=== PATIENT | male | born 1970 | race Caucasian/White ===

== ENCOUNTER 2017-01-06 11:03 | Emergency (ER) | payer OTHER ==
[~2017-01-06] VITALS: Ht 182.9 cm; Wt 115.0 kg
[~2017-01-06 11:03] MED LIST: BUPR150T12 PO; BUSP10TA PO; CYMB60CA PO; GABA600T PO; IBUP800T23 PO; LOVA20TA PO; LURA40 PO; METH750T PO; TRIA0.1O TOP; TRIH5TAB2 PO
[2017-01-06 11:06] VITALS: BP 149/89; PULSE 114; RESP 15; TEMP 97.9; O2SAT 97
--- NOTE | 2017-01-06 13:31 | PD ---
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 He states that 2 days ago his left leg went tingly and numb for several minutes. He states that he was walking when this happened. He was able to continue walking and had no weakness. He was able to "shake the leg "and improved. Yesterday his right arm to the same thing but this was over the C5-C6 distribution. There was no provocative factor and again was alleviated by him shaking the limb, lasted for several minutes. He had minor discomfort when this occurred as well. This morning he had an episode where he felt unsteady, like I was on a boat "for 1-2 hours. This did seem to start with sitting up but it was not alleviated by lying down or once he was up and walking. He had some mild nausea without vomiting. He denies syncope. He denies any focal abnormality. He reports he' s had torticollis in the neck and per his history he has had dyskinesia secondary to psychiatric medications in the past. He denies any current dystonia or dyskinesia. States his neck is always chronically turned towards the right. Without acute exacerbation. He denies any difficulty breathing or vision changes. He denies alcohol tobacco and illicit drug use. PFSH Past Medical History Depression: Yes Cardiovascular Problems: No Diabetes: No Endocrine: No Gastrointestinal Disorders: No Genitourinary: No Hiatal Hernia: No Hypertension: No Immune Disorder: No Musculoskeletal: Yes (DEMYLENATING DISEASE POSSIBLY. MRI SHOWED PROBLEM.NEUROLOGIST STATED NO) Neurologic: Yes (numbness tingling back, head, feet) Reproductive: No Respiratory: No Schizophrenia: Yes Thyroid Disease: No Past Surgical History AICD: No Joint Replacement: No Pacemaker: No Social History Alcohol Use: No Tobacco Use: No Substance Use: No Allergies-Medications (Allergen,Severity, Reaction): Coded Allergies: Tetracycline (Verified Allergy, Severe, unknown, 01/06/17) Uncoded Allergies: REQUESTS NO NARCOTICS (Allergy, Mild, 01/31/09) Reported Meds & Prescriptions Reported Meds & Active Scripts Active Lovastatin 20 Mg Tab 20 Mg PO HS Ibuprofen 800 Mg Tab 800 Mg PO Q8H PRN Methocarbamol 750 Mg Tab 750 Mg PO BID Reported Triamcinolone Acetonide (Triamcinolone Acetonide (Topic) 1 Pow Pow 0.1 % TOPICAL BID Cymbalta DR (Duloxetine HCl) 60 Mg Capdr 60 Mg PO HS Bupropion Sr 12 HR (Bupropion ER 12 HR (Smoking Deterrent)) 150 Mg Tab 150 Mg PO BID Take 1 tablet daily x 3 days then twice daily thereafter. Gabapentin 600 Mg Tab 600 Mg PO TID Buspirone (Buspirone HCl) 10 Mg Tab 10 Mg PO TID Latuda (Lurasidone) 40 Mg Tab 40 Mg PO HS Trihexyphenidyl (Trihexyphenidyl HCl) 5 Mg Tab 5 Mg PO TID Review of Systems Except as stated in HPI: all other systems reviewed are Neg Physical Exam Narrative GENERAL: Well-developed and well-nourished adult male in no acute distress. SKIN: Warm and dry. Good turgor without tenting. HEAD: Normocephalic and atraumatic. EYES: PERRL bilaterally, 5mm. EOMI bilaterally. No injection or icterus present. No proptosis. Lids without edema or erythema. Head impulse test shows normal eye movement. No nystagmus with EOMs. No skew with covering uncovering of the eyes bilaterally. ENT: Negative bilateral Casi-Hallpike maneuver. Bilateral ear canals are non- edematous/non-erythematous without otorrhea. Bilateral TMs have intact landmarks and without distortion, perforation, air-fluid level or erythema. Nasal mucosa pink and moist without discharge, septum intact and midline. Buccal mucosa pink and moist. Oropharynx free of erythema, tonsillar hypertrophy , masses, swelling, asymmetry and exudates. Uvula midline and airway patent. NECK: Supple, no meningeal signs. Patient does have head actually rotated towards the right slightly which is chronic. No tenderness to palpation of the neck. Redundant neck tissue without any clear masses palpated. No induration. Trachea midline, no JVD. No cervical or facial lymphadenopathy. CARDIOVASCULAR: Regular rate and rhythm without murmurs, rubs, clicks or gallops. Radial and posterior tibial pulses 2+ bilaterally. No pedal edema. RESPIRATORY: Clear to auscultation bilaterally with symmetrical rise and fall, no distress or use of accessory muscles. GASTROINTESTINAL: Non-tender, non-distended. Normal bowel sounds all 4 quadrants. No masses or organomegaly present. MUSCULOSKELETAL: Negative Spurling, Wrights and Adsons test. No gait disturbance. Patient freely moving all four extremities spontaneously. Extremities without clubbing, cyanosis, or edema. No obvious deformities. NEUROLOGIC: CN II-XII grossly intact. Awake and alert. Negative Romberg and pronator drift. Munoz and accurate finger to nose testing bilaterally. No dysdiadochokinesis. Strength 5/5 bilateral shoulder flexion, shoulder extension , shoulder abduction, shoulder adduction, elbow flexion, elbow extension. Sensation intact and strength 5/5 over radial, median, and ulnar nerve distributions bilaterally.Sensation intact L2-S2 bilaterally. Strength 5/5 in hip flexion, hip extension, knee flexion, knee extension, plantar flexion, dorsiflexion bilaterally. Bilateral triceps, biceps, brachioradialis DTRs 1+, bilateral patellar and Achilles DTRs 2+. Negative bilateral Candis sign. Downgoing Babinskis bilaterally. Normal speech. PSYCHIATRIC: Appropriate mood and affect; insight and judgment normal. Data Data Last Documented VS Vital Signs Date Time Temp Pulse Resp B/P Pulse Ox O2 Delivery O2 Flow Rate FiO2 01/06/17 16:24 98.1 90 18 127/90 96 Room Air Orders Electrocardiogram (01/06/17 13:26) Prothrombin Time / Inr (Pt) (01/06/17 13:26) Act Partial Throm Time (Ptt) (01/06/17 13:26) Complete Blood Count With Diff (01/06/17 13:26) Comprehensive Metabolic Panel (01/06/17 13:26) Creatine Kinase (Cpk) (01/06/17 13:26) Drug Screen, Random Urine (01/06/17 13:26) Troponin I (01/06/17 13:26) Urinalysis - C+S If Indicated (01/06/17 13:26) Ct Brain W/O Iv Contrast(Rout) (01/06/17 13:26) Chest, Single Ap (01/06/17 13:26) Ct Cerv Spine W/O Contrast (01/06/17 ) Lipase (01/06/17 13:31) Labs Laboratory Tests Test 01/06/17 01/06/17 13:34 13:38 White Blood Count 7.0 TH/MM3 Red Blood Count 4.27 MIL/MM3 Hemoglobin 14.1 GM/DL Hematocrit 40.5 % Mean Corpuscular Volume 94.9 FL Mean Corpuscular Hemoglobin 32.9 PG Mean Corpuscular Hemoglobin 34.7 % Concent Red Cell Distribution Width 13.1 % Platelet Count 195 TH/MM3 Mean Platelet Volume 9.1 FL Neutrophils (%) (Auto) 57.3 % Lymphocytes (%) (Auto) 33.1 % Monocytes (%) (Auto) 7.0 % Eosinophils (%) (Auto) 2.4 % Basophils (%) (Auto) 0.2 % Neutrophils # (Auto) 4.0 TH/MM3 Lymphocytes # (Auto) 2.3 TH/MM3 Monocytes # (Auto) 0.5 TH/MM3 Eosinophils # (Auto) 0.2 TH/MM3 Basophils # (Auto) 0.0 TH/MM3 CBC Comment DIFF FINAL Differential Comment Prothrombin Time 10.6 SEC Prothromb Time International 1.0 RATIO Ratio Activated Partial 25.3 SEC Thromboplast Time Sodium Level 141 MEQ/L Potassium Level 3.4 MEQ/L Chloride Level 106 MEQ/L Carbon Dioxide Level 25.5 MEQ/L Anion Gap 10 MEQ/L Blood Urea Nitrogen 11 MG/DL Creatinine 1.33 MG/DL Estimat Glomerular Filtration 58 ML/MIN Rate Random Glucose 102 MG/DL Calcium Level 9.2 MG/DL Total Bilirubin 0.3 MG/DL Aspartate Amino Transf 16 U/L (AST/SGOT) Alanine Aminotransferase 26 U/L (ALT/SGPT) Alkaline Phosphatase 97 U/L Total Creatine Kinase 189 U/L Troponin I LESS THAN 0.02 NG/ML Total Protein 7.0 GM/DL Albumin 4.0 GM/DL Lipase 127 U/L Urine Color LIGHT-YELLOW Urine Turbidity CLEAR Urine pH 6.5 Urine Specific [place] 1.004 Urine Protein NEG mg/dL Urine Glucose (UA) NEG mg/dL Urine Ketones NEG mg/dL Urine Occult Blood NEG Urine Nitrite NEG Urine Bilirubin NEG Urine Urobilinogen LESS THAN 2.0 MG/DL Urine Leukocyte Esterase NEG Urine WBC LESS THAN 1 /hpf Microscopic Urinalysis Comment CATH-CULT NOT IND Urine Opiates Screen NEG Urine Barbiturates Screen NEG Urine Amphetamines Screen NEG Urine Benzodiazepines Screen NEG Urine Cocaine Screen NEG Urine Cannabinoids Screen NEG MDM Medical Decision Making Medical Screen Exam Complete: Yes Emergency Medical Condition: Yes Differential Diagnosis CVA versus TIA versus paresthesia versus neurapraxia versus white matter disease versus MS versus HNP versus thoracic outlet syndrome Narrative Course Workup initiated in triage. Once a medical bed becomes available patient will be transferred and care assumed by the next provider. Patient is a 46-year-old male with history of unspecific cerebral white matter disease but MS was excluded who is not had any problems for approximately 3-4 years, no current neurologist. Last 2 days he has had some paresthesia in the left lower extremity and the right upper extremity and had a 1-2 hours of unsteadiness earlier today. All symptoms have resolved. He has history of torticollis and has chronic axial rotation of the neck towards the right. Thoracic outlet syndrome tests not suggestive of thoracic outlet syndrome. He is neurovascularly intact. He has no vision or respiratory complaints. Mild tachycardic in triage however on my exam heart rate is [address] of the head and C-spine. Ordered chest x-ray, EKG, troponin, CPK and additional labs to initiate workup. Patient was signed out to Dr. Linda was also to evaluate the patient and order additional testing and disposition as necessary. Diagnosis Primary Impression: Left leg paresthesias Additional Impressions: Radicular neuropathy Arm paresthesia, right Condition: Stable Germán Falcon III Jan 06, 2017 13:31
[2017-01-06] MEDS ORDERED: TRIAPOW TOPICAL (13:46)
[2017-01-06 13:56] LABS: BASOPHIL % 0.2 % (0.0-2.0); EOSINOPHIL # 0.2 TH/MM3 (0-0.4); EOSINOPHIL % 2.4 % (0.0-4.0); HEMATOCRIT 40.5 % (39.0-51.0); HEMO FLAGS DIFF FINAL; LYMPH % 33.1 % (9.0-44.0); LYMPHOCYTE # 2.3 TH/MM3 (1.0-4.8); MEAN CELL VOLUME 94.9 FL (80.0-100.0); MEAN CORPUSCULAR HEMOGLOBIN 32.9 PG (27.0-34.0); MEAN CORPUSCULAR HGB CONC 34.7 % (32.0-36.0); NEUT % 57.3 % (16.0-70.0); PLATELET COUNT 195 TH/MM3 (150-450); RED BLOOD COUNT 4.27 MIL/MM3 (4.50-5.90); RED CELL DISTRIBUTION WIDTH 13.1 % (11.6-17.2)
[2017-01-06 13:57] LABS: BLOOD, URINE NEG (NEG); GLUCOSE,URINE NEG (NEG); KETONE, URINE NEG (NEG); NITRITE,URINE NEG (NEG); PH, URINE 6.5 (5.0-8.5); URINE COLOR LIGHT-YELLOW (YELLW/STRAW)
[2017-01-06 14:03] LABS: COMMENT (UR) CATH-CULT NOT IND; CULTURE IF INDICATED CATH CULTURE NOT IND
[2017-01-06 14:11] LABS: APTT (PATIENT) 25.3 SEC (24.3-30.1); PROTHROMBIN TIME - PATIENT 10.6 SEC (9.8-11.6)
[2017-01-06 14:15] LABS: ALT (GPT) 26 U/L (12-78); ANION GAP 10 MEQ/L (5-15); AST (GOT) 16 U/L (15-37); BICARBONATE 25.5 MEQ/L (21.0-32.0); BLOOD UREA NITROGEN 11 MG/DL (7-18); CHLORIDE 106 MEQ/L (98-107); GLOMERULAR FILTRATION RATE 58 ML/MIN (>89); POTASSIUM 3.4 MEQ/L (3.5-5.1); SODIUM (NA) 141 MEQ/L (136-145)
[2017-01-06 14:19] LABS: AMPHETAMINE, URINE NEG (NEG); BARBITURATES, URINE NEG (NEG); COCAINE, URINE NEG (NEG)
[2017-01-06 14:19] LABS: ALKALINE PHOSPHATASE 97 U/L (45-117); CREATINE KINASE 189 U/L (39-308); TOTAL BILIRUBIN ADULT 0.3 MG/DL (0.2-1.0)
--- NOTE | 2017-01-06 14:31 | RADRPT ---
EXAM DATE/TIME: 01/06/2017 14:09 [facility] COMPARISON: CLAVICLE LEFT, April 21, 2016, 9:53. INDICATIONS : Shortness of breath and right arm numbness. MEDICAL HISTORY : Multiple sclerosis. Hypercholesterolemia. Neuropathy. Hyperlipidemia. Demylenating disease. Schizophr enia. SURGICAL HISTORY : None. ENCOUNTER: Initial ACUITY: 1 day PAIN SCORE: 0/10 LOCATION: Bilateral chest FINDINGS: A single view of the chest demonstrates the lungs to be symmetrically aerated without evidence of mas s, infiltrate or effusion. The cardiomediastinal contours are unremarkable. Osseous structures are intact. CONCLUSION: 1. No acute cardiopulmonary findings. Umang Neves MD on January 06, 2017 at 14:29 Board Certified Radiologist. This report was verified electronically.
--- NOTE | 2017-01-06 15:08 | RADRPT ---
EXAM DATE/TIME: 01/06/2017 14:48 [facility] COMPARISON: CT BRAIN W & W/O CONTRAST, April 07, 2016, 11:25. INDICATIONS : Left leg numbness and tingling and right arm numbness. RADIATION DOSE: 69.15 CTDIvol (mGy) MEDICAL HISTORY : None SURGICAL HISTORY : None. ENCOUNTER: Initial ACUITY: 1 week PAIN SCALE: 0/10 LOCATION: cranial TECHNIQUE: Multiple contiguous axial images were obtained of the head. Using automated exposure control and adj ustment of the mA and/or kV according to patient size, radiation dose was kept as low as reasonably a chievable to obtain optimal diagnostic quality images. FINDINGS: CEREBRUM: The ventricles are normal for age. Patchy periventricular white matter lucencies are present. No ino dence of midline shift, mass lesion, hemorrhage or acute infarction. No extra-axial fluid collection s are seen. POSTERIOR FOSSA: The cerebellum and brainstem are intact. The 4th ventricle is midline. The cerebellopontine angle i s unremarkable. EXTRACRANIAL: The visualized portion of the orbits is intact. SKULL: The calvaria is intact. No evidence of skull fracture. CONCLUSION: Patchy periventricular white matter lucencies are again noted with chronic small vess el ischemic change. There is no acute hemorrhage or mass effect. Rocco Cevallos MD on January 06, 2017 at 15:04 Board Certified Radiologist. This report was verified electronically.
--- NOTE | 2017-01-06 15:23 | RADRPT ---
EXAM DATE/TIME: 01/06/2017 14:48 [facility] COMPARISON: No previous studies available for comparison. INDICATIONS : Left leg numbness and tingling and right arm numbness. RADIATION DOSE: 39.14 CTDIvol (mGy) MEDICAL HISTORY : None SURGICAL HISTORY : None. ENCOUNTER: Initial ACUITY: 1 week PAIN SCALE: 0/10 LOCATION: neck TECHNIQUE: Volumetric scanning of the cervical spine was performed. Multiplanar reconstructions in the sagittal, coronal and oblique axial planes were performed. Using automated exposure control and adjustment o f the mA and/or kV according to patient size, radiation dose was kept as low as reasonably achievable to obtain optimal diagnostic quality images. FINDINGS: VERTEBRAE: Normal vertebral body height. ALIGNMENT: No evidence of subluxation. C2-C3: The bony spinal canal is normal in size. No evidence of disc bulge or herniation. The neural forami na are bilaterally patent. C3-C4: The bony spinal canal is normal in size. No evidence of disc bulge or herniation. The neural forami na are bilaterally patent. C4-C5: The bony spinal canal is normal in size. No evidence of disc bulge or herniation. The neural forami na are bilaterally patent. C5-C6: The bony spinal canal is normal in size. No evidence of disc bulge or herniation. The neural forami na are bilaterally patent. C6-C7: The bony spinal canal is normal in size. No evidence of disc bulge or herniation. The neural forami na are bilaterally patent. C7-T1: The bony spinal canal is normal in size. No evidence of disc bulge or herniation. The neural forami na are bilaterally patent. CONCLUSION: Unremarkable exam. Rocco Cevallos MD on January 06, 2017 at 15:21 Board Certified Radiologist. This report was verified electronically.
[2017-01-06 16:24] VITALS: BP 127/90; PULSE 90; RESP 18; TEMP 98.1; O2SAT 96
--- NOTE | 2017-01-06 16:56 | PD ---
Physical Exam Date Seen by Provider: Jan 06, 2017 Data Data Last Documented VS Vital Signs Date Time Temp Pulse Resp B/P Pulse Ox O2 Delivery O2 Flow Rate FiO2 01/06/17 16:24 98.1 90 18 127/90 96 Room Air Orders Electrocardiogram (01/06/17 13:26) Prothrombin Time / Inr (Pt) (01/06/17 13:26) Act Partial Throm Time (Ptt) (01/06/17 13:26) Complete Blood Count With Diff (01/06/17 13:26) Comprehensive Metabolic Panel (01/06/17 13:26) Creatine Kinase (Cpk) (01/06/17 13:26) Drug Screen, Random Urine (01/06/17 13:26) Troponin I (01/06/17 13:26) Urinalysis - C+S If Indicated (01/06/17 13:26) Ct Brain W/O Iv Contrast(Rout) (01/06/17 13:26) Chest, Single Ap (01/06/17 13:26) Ct Cerv Spine W/O Contrast (01/06/17 ) Lipase (01/06/17 13:31) Labs Laboratory Tests Test 01/06/17 01/06/17 13:34 13:38 White Blood Count 7.0 TH/MM3 Red Blood Count 4.27 MIL/MM3 Hemoglobin 14.1 GM/DL Hematocrit 40.5 % Mean Corpuscular Volume 94.9 FL Mean Corpuscular Hemoglobin 32.9 PG Mean Corpuscular Hemoglobin 34.7 % Concent Red Cell Distribution Width 13.1 % Platelet Count 195 TH/MM3 Mean Platelet Volume 9.1 FL Neutrophils (%) (Auto) 57.3 % Lymphocytes (%) (Auto) 33.1 % Monocytes (%) (Auto) 7.0 % Eosinophils (%) (Auto) 2.4 % Basophils (%) (Auto) 0.2 % Neutrophils # (Auto) 4.0 TH/MM3 Lymphocytes # (Auto) 2.3 TH/MM3 Monocytes # (Auto) 0.5 TH/MM3 Eosinophils # (Auto) 0.2 TH/MM3 Basophils # (Auto) 0.0 TH/MM3 CBC Comment DIFF FINAL Differential Comment Prothrombin Time 10.6 SEC Prothromb Time International 1.0 RATIO Ratio Activated Partial 25.3 SEC Thromboplast Time Sodium Level 141 MEQ/L Potassium Level 3.4 MEQ/L Chloride Level 106 MEQ/L Carbon Dioxide Level 25.5 MEQ/L Anion Gap 10 MEQ/L Blood Urea Nitrogen 11 MG/DL Creatinine 1.33 MG/DL Estimat Glomerular Filtration 58 ML/MIN Rate Random Glucose 102 MG/DL Calcium Level 9.2 MG/DL Total Bilirubin 0.3 MG/DL Aspartate Amino Transf 16 U/L (AST/SGOT) Alanine Aminotransferase 26 U/L (ALT/SGPT) Alkaline Phosphatase 97 U/L Total Creatine Kinase 189 U/L Troponin I LESS THAN 0.02 NG/ML Total Protein 7.0 GM/DL Albumin 4.0 GM/DL Lipase 127 U/L Urine Color LIGHT-YELLOW Urine Turbidity CLEAR Urine pH 6.5 Urine Specific [place] 1.004 Urine Protein NEG mg/dL Urine Glucose (UA) NEG mg/dL Urine Ketones NEG mg/dL Urine Occult Blood NEG Urine Nitrite NEG Urine Bilirubin NEG Urine Urobilinogen LESS THAN 2.0 MG/DL Urine Leukocyte Esterase NEG Urine WBC LESS THAN 1 /hpf Microscopic Urinalysis Comment CATH-CULT NOT IND Urine Opiates Screen NEG Urine Barbiturates Screen NEG Urine Amphetamines Screen NEG Urine Benzodiazepines Screen NEG Urine Cocaine Screen NEG Urine Cannabinoids Screen NEG MDM Medical Record Reviewed: Yes Supervised Visit with HERO: Yes Narrative Course I, Dr. Linda, have reviewed the advance practice practitioner's documentation and am in agreement, met with the patient face to face, made the diagnosis, and the medical decision making was done by me. *My assessment and Findings: Parasthesias vs neuropathy, no acute neurologic findings. Patient will follow up neurologist as outpt and return to ER as needed Patient is a 46-year-old male with complaints of intermittent left leg tingling as well as right arm tingling which resolves after he "shakes it off." Reports that symptoms last for about a few seconds at a time and resolves after he "shakes it off." Patient with complete resolutions of symptoms at this time. Patient reports that he just wanted to come to the emergency room and be evaluated. Patient reports that the symptoms have been intermittent for the past week. Patient with no headaches or dizziness, no weakness at this time. Patient with normal neurological exam. CN 2-12 grossly intact with no neuro deficits. I reviewed all the patient's labs and studies with patient in detail. Patient with no acute findings. NO cranial nerve deficits and NIH scale 0. Patient reports that he feels 100% better at this time. Patient will follow-up with his neurologist Dr. Artis as outpatient. Signs and symptoms of when to return to the emergency room was reviewed with patient in detail. I did offer patient observation - pt request to be discharged to home and return to ER as needed Diagnosis Primary Impression: Left leg paresthesias Additional Impressions: Arm paresthesia, right Radicular neuropathy Referrals: Jay Jay Artis PhD MD Patient Instructions: General Instructions Additional Instruction: Please follow-up with neurologist as soon as possible Return to emergency room as needed or if symptoms return Disposition: 01 DISCHARGE HOME Condition: Stable Latonya Linda DO Jan 06, 2017 16:56
--- NOTE | 2017-01-07 15:38 | EKG ---
Date Performed: 01/06/2017 Time Performed: 13:59:10 PTAGE: 46 years EKG: Sinus rhythm Compared to previous tracing, ST-T changes have improved, and the HR is slower NORMAL ECG PREVIOUS TRACING : 09/16/2014 14.00 DOCTOR: Dionicio Marquez Interpretating Date/Time 01/07/2017 15:38:24
[2017-03-30] MEDS ORDERED: LOVA20TA PO (10:33)
[2017-04-07] MEDS ORDERED: METH750T PO (13:35)
[2017-04-11] MEDS ORDERED: GABA800T PO (09:06)
== END 2017-01-06 17:37 | disposition home or self-care (01) ==
LOC: NEPA 11:03
DX: G62.9 Polyneuropathy, unspecified (principal); R06.02 Shortness of breath
CPT/HCPCS: 70450; 71010; 72125; 80053; 80307; 81001; 82550; 83690; 84484; 85025; 85610; 85730; 93005

== ENCOUNTER → 2017-03-22 | Outpatient (CLI) | payer OTHER ==
[~2017-03-22] MED LIST changes: +GABA800T PO; -TRIA0.1O TOP; +TRIAPOW TOPICAL
[2017-03-22 09:56] LABS: HDL CHOLESTEROL 48.3 MG/DL (40.0-60.0)
== END ==
LOC: CLAB 08:47
PROVIDERS: ATTEND Family Medicine
DX: E78.2 Mixed hyperlipidemia (principal)
CPT/HCPCS: 36415; 80061

== ENCOUNTER 2017-08-21 11:46 | Emergency (ER) | payer OTHER ==
[2017-08-21 11:48] VITALS: BP 120/86; PULSE 104; RESP 15; TEMP 98.5; O2SAT 95
--- NOTE | 2017-08-21 12:02 | PD ---
Physical Exam Time Seen by Provider: 12:00 Narrative Pt presents to ED for evaluation urinary burning, decreased appetite, cold sweats, and diarrhea x 3 days. No abdominal pain. L flank cramping. Pt also reports racing thoughts and weird dreams. History of bipolar disorder. Denies SI /HI Of note pt has been taking large amount of energy drinks, otc erectile dysfunction meds, and more than prescribed buproprion during this time frame. Here for medical clearance to return to [facility] facility. Data Data Last Documented VS Vital Signs Date Time Temp Pulse Resp B/P (MAP) Pulse Ox O2 Delivery O2 Flow Rate FiO2 08/21/17 11:48 98.5 104 15 120/86 (97) 95 Orders Orders Complete Blood Count With Diff (08/21/17 12:04) Basic Metabolic Panel (Bmp) (08/21/17 12:04) Alcohol (Ethanol) (08/21/17 12:04) Labs Laboratory Tests Test 08/21/17 12:15 White Blood Count 8.5 TH/MM3 Red Blood Count 5.26 MIL/MM3 Hemoglobin 17.7 GM/DL Hematocrit 50.6 % Mean Corpuscular Volume 96.1 FL Mean Corpuscular Hemoglobin 33.7 PG Mean Corpuscular Hemoglobin Concent 35.0 % Red Cell Distribution Width 13.4 % Platelet Count 245 TH/MM3 Mean Platelet Volume 8.7 FL Neutrophils (%) (Auto) 65.9 % Lymphocytes (%) (Auto) 27.0 % Monocytes (%) (Auto) 6.2 % Eosinophils (%) (Auto) 0.4 % Basophils (%) (Auto) 0.5 % Neutrophils # (Auto) 5.6 TH/MM3 Lymphocytes # (Auto) 2.3 TH/MM3 Monocytes # (Auto) 0.5 TH/MM3 Eosinophils # (Auto) 0.0 TH/MM3 Basophils # (Auto) 0.0 TH/MM3 CBC Comment AUTO DIFF Differential Comment AUTO DIFF CONFIRMED Blood Urea Nitrogen 18 MG/DL Creatinine 1.24 MG/DL Random Glucose 89 MG/DL Calcium Level 9.7 MG/DL Sodium Level 138 MEQ/L Potassium Level 4.0 MEQ/L Chloride Level 105 MEQ/L Carbon Dioxide Level 26.3 MEQ/L Anion Gap 7 MEQ/L Estimat Glomerular Filtration Rate 62 ML/MIN Ethyl Alcohol Level LESS THAN 3 MG/DL [facility] Medical Record Reviewed: Yes Supervised Visit with HERO: No Disposition: 07 AGAINST MEDICAL ADVICE Condition: Stable Amber Christina Aug 21, 2017 12:02
[2017-08-21 12:32] LABS: AUTOMATED NEUTROPHIL # 5.6 TH/MM3 (1.8-7.7); BASOPHIL % 0.5 % (0.0-2.0); EOSINOPHIL % 0.4 % (0.0-4.0); HEMATOCRIT 50.6 % (39.0-51.0); LYMPHOCYTE # 2.3 TH/MM3 (1.0-4.8); MEAN CELL VOLUME 96.1 FL (80.0-100.0); MEAN CORPUSCULAR HEMOGLOBIN 33.7 PG (27.0-34.0); MONO % 6.2 % (0.0-8.0); NEUT % 65.9 % (16.0-70.0); PLATELET COUNT 245 TH/MM3 (150-450); RED BLOOD COUNT 5.26 MIL/MM3 (4.50-5.90); RED CELL DISTRIBUTION WIDTH 13.4 % (11.6-17.2); WHITE BLOOD COUNT 8.5 TH/MM3 (4.0-11.0)
[2017-08-21 12:35] LABS: HEMO FLAGS AUTO DIFF
[2017-08-21 12:50] LABS: ANION GAP 7 MEQ/L (5-15); BICARBONATE 26.3 MEQ/L (21.0-32.0); BLOOD UREA NITROGEN 18 MG/DL (7-18); CHLORIDE 105 MEQ/L (98-107); GLOMERULAR FILTRATION RATE 62 ML/MIN (>89); SODIUM (NA) 138 MEQ/L (136-145)
[2017-08-21 12:53] LABS: ALCOHOL LESS THAN 3 MG/DL (0-5)
[2017-08-21 13:47] LABS: SCAN/DIFF AUTO DIFF CONFIRMED
== END 2017-08-21 19:06 | disposition left against medical advice (07) ==
LOC: NED 11:46
DX: R61 Generalized hyperhidrosis (principal); R19.7 Diarrhea, unspecified; R10.9 Unspecified abdominal pain; F31.9 Bipolar disorder, unspecified
CPT/HCPCS: 80048; 80307; 85025; 99283

== ENCOUNTER 2018-03-15 09:00 | Emergency (ER) | payer SELFPAY ==
[~2018-03-15 09:00] MED LIST changes: +IBUP1TAB7 PO; -IBUP800T23 PO
[2018-03-15 09:16] VITALS: BP 121/61; PULSE 104; RESP 18; TEMP 98.1; O2SAT 98
--- NOTE | 2018-03-15 11:25 | PD ---
HPI . Numbness Chief Complaint: Musculoskeletal Complaint Time Seen by Provider: 11:08 Travel History International Travel<30 days: No Contact w/Intl Traveler<30days: No Traveled to known affect area: No History of Present Illness HPI This patient presents to us with the chief complaint of right thigh numbness. Onset has been "months." Symptoms are unrelieved by ice. No exacerbating symptoms. No associated symptoms. No associated back pain. No associated fevers. No associated perineal anesthesia. No associated bowel or bladder incontinence. History Social History Alcohol Use: No Tobacco Use: No Allergies-Medications (Allergen,Severity, Reaction): Coded Allergies: doxycycline (Unverified Allergy, Severe, unknown, 07/04/17) minocycline (Unverified Allergy, Severe, unknown, 07/04/17) tigecycline (Unverified Allergy, Severe, unknown, 07/04/17) Uncoded Allergies: REQUESTS NO NARCOTICS (Allergy, Mild, 01/31/09) Reported Meds & Prescriptions Reported Meds & Active Scripts Active Gabapentin 800 Mg Tab 800 Mg PO TID Methocarbamol 750 Mg Tab 750 Mg PO BID Lovastatin 20 Mg Tab 20 Mg PO HS Ibuprofen 800 Mg Tab 800 Mg PO Q8H PRN Reported Triamcinolone Acetonide (Triamcinolone Acetonide (Topic) 1 Pow Pow 0.1 % TOPICAL BID Cymbalta DR (Duloxetine HCl) 60 Mg Capdr 60 Mg PO HS Bupropion Sr 12 HR (Bupropion ER 12 HR (Smoking Deterrent)) 150 Mg Tab 150 Mg PO BID Take 1 tablet daily x 3 days then twice daily thereafter. Gabapentin 600 Mg Tab 600 Mg PO TID Buspirone (Buspirone HCl) 10 Mg Tab 15 Mg PO TID Latuda (Lurasidone) 40 Mg Tab 20 Mg PO HS Trihexyphenidyl (Trihexyphenidyl HCl) 5 Mg Tab 5 Mg PO TID Review of Systems Except as stated in HPI: all other systems reviewed are Neg Physical Exam Narrative GENERAL: Awake and alert and in no acute distress. SKIN: Warm and dry. HEAD: Normocephalic/atraumatic. EYES: Pupils are equal. Extraocular movements are intact. NECK: Normal range of motion. CARDIOVASCULAR: Regular rate and rhythm. RESPIRATORY: Nonlabored respirations. MUSCULOSKELETAL: Atraumatic. There is no tenderness to percussion of his spine. NEUROLOGICAL: A and O 3. Cranial nerves are intact. He is moving both lower extremities equally without any apparent weakness. His lower extremity reflexes are equal but diminished bilaterally. There is no muscular atrophy. He has good capillary refill and pulses. PSYCHIATRIC: Appropriate mood and affect. Data Data Last Documented VS Vital Signs Date Time Temp Pulse Resp B/P (MAP) Pulse Ox O2 Delivery O2 Flow Rate FiO2 03/15/18 09:16 98.1 104 18 121/61 (81) 98 MDM Medical Screen Exam Complete: Yes Emergency Medical Condition: No Narrative Course A medical screening exam was performed: At the time of evaluation the presenting medical condition was determined not to be of an emergent nature. The patient was given the option of receiving additional care, but declined. Patient was given options for additional community resources from which to obtain care. The Patient Has Been advised to seek medical attention for their presenting complaint. The patient has been advised to return to the ER at any time if an emergent condition develops. Primary Impression: Encounter for medical screening examination Condition: Stable Juli Uribe MD Mar 15, 2018 11:25
== END 2018-03-15 11:33 | disposition left against medical advice (07) ==
LOC: NEPD 09:00
DX: R20.0 Anesthesia of skin (principal); Z79.899 Other long term (current) drug therapy; Z88.8 Allergy status to other drugs, medicaments and biological substances
CPT/HCPCS: 99281